=== PATIENT | female | born 1980 | race Caucasian/White ===

== ENCOUNTER → 2024-12-09 09:13 | Outpatient (REF) | payer OTHER, SELFPAY | LOC: WDC 09:13 | PROVIDERS: ATTENDING PHYSICIAN Family Medicine | DX: N64.4 Mastodynia (principal); N63.13 Unspecified lump in the right breast, lower outer quadrant; N63.22 Unspecified lump in the left breast, upper inner quadrant | CPT/HCPCS: 76642; 77062; 77066 ==

== ENCOUNTER 2025-08-04 11:53 | Emergency (ER) | payer OTHER, SELFPAY ==
[2025-08-04 11:59] VITALS: BP 116/78
[2025-08-04 12:29] LABS: Hematocrit 35.6 % (37.0-47.0); Hemoglobin 11.3 g/dL (12.0-16.0); Mean Corp Hgb Conc. 31.7 g/dL (33.0-37.0); Mean Corpuscular Volume 75.6 fL (81.0-99.0); Nucleated Red Blood Cells % 0 %; Platelet Count 263 10^3/uL (130-400); Red Cell Dist. Width 15.6 % (11.5-14.5)
[2025-08-04 12:44] LABS: ALT (SGPT) 13 U/L (0-35); AST (SGOT) 22 U/L (14-36); Albumin 5.2 g/dl (3.5-5.0); Alkaline Phosphatase 54 U/L (38-126); Blood Urea Nitrogen 13 mg/dl (7-17); Calcium 9.7 mg/dl (8.4-10.2); Carbon Dioxide 25 mmol/L (22-30); Chloride 104 mmol/L (98-107); Glucose 89 mg/dl (70-99); Potassium 5.1 mmol/L (3.5-5.1); Sodium 137 mmol/L (135-145); Total Protein 8.9 g/dl (6.3-8.2); eGFR > 60.00
[2025-08-04 12:49] LABS: INR 0.93; PT 12.6 Sec (11.4-14.6)
[2025-08-04 12:50] LABS: APTT 28.6 Sec (23.4-35.0)
[2025-08-04 12:52] LABS: Troponin I 0.017 ng/ml
--- NOTE | 2025-08-04 13:24 | ED.GENMED ---
History of Present Illness
<Rajesh Chand MD, Resident - Last Filed: 08/05/25 06:51>
General
Chief Complaint: Chest Pain
Time Seen by Provider: 08/04/25 13:24
History of Present Illness
History of Present Illness:
44 yo F PMH hypothyroidism, dyslipidemia (on rosuvastatin), pituitary adenoma (s/p removal > 20 years ago) p/w palpitations, sharp chest pain on left side when lying down on left side, and dyspnea for 4-5 days duration.
The pain is sharp/needle like character best noticed when she sleeps, it is nonradiating. no clear aggravating/alleviating factors.
She is perimenopausal and started hormone replacement therapy (progesterone pill, estrogen patch) 2 months ago and recently increased her estrogen dose 2 weeks prior.
she denies chest pain at the moment, mostly when lying down on left side, denies pleuritic chest pain, endorses some dyspnea, and endorses some congestion. endorses some lightheadedness/fatigue but denies focal weakness.
denies hemoptysis, denies recent travel, denies recent immobilization/surgeries, denies any known history of malignancy.
She presented to her PCP and then advised her to present to ED.
Social history: occasional Etoh but otherwise unremarkable.
Past History
<Rajesh Chand MD, Resident - Last Filed: 08/05/25 06:51>
Past History
ED Past Medical History: Hypothyroidism
ED Past Surgical History: Other (Thalmus adenoma and breast biopsy)
Social History
Tobacco: Non-smoker
Alcohol: None
Drug: None
Personal:
Living: with family
Review of Systems
<Rajesh Chand MD, Resident - Last Filed: 08/05/25 06:51>
Review of Systems
Constitutional: Reports no symptoms
EENT: Reports no symptoms
Respiratory: Reports trouble breathing
Cardiac: Reports chest pain and palpitations
ABD/GI: Reports no symptoms
: Reports no symptoms
Neurological: Reports other (lightheadedness)
Phy Exam
<Rajesh Chand MD, Resident - Last Filed: 08/05/25 06:51>
Physical Exam
Physical Exam:
VS: 116/78; HR 86; afebrile; SpO2
General: no acute distress
CV: regular rhythm, no murmurs on my exam
Pulm: CTAB
Abdomen: + bowel sounds, no tenderness to palpation
MSK: no lower extremity edema; no tenderness to palpation over calf bilaterally
Neuro: AOx3, no focal deficits
Skin: no rash visualized over left chest, on my exam
Scores
<Rajesh Chand MD, Resident - Last Filed: 08/05/25 06:51>
Heart Score for Chest Pain Patients
STEMI patient?: No
History: Slightly or Non-Suspicious
ECG: Normal
Age: >45 - <65 years
Risk Factors: 1 or 2 Risk Factors
Troponin: </= Normal Limit
Heart Score for Chest Pain Patients: 2
Heart Score Risk: 2.5% MACE over next 6 weeks
Course
<Rajesh Chand MD, Resident - Last Filed: 08/05/25 06:51>
Orders/Labs/Results
Orders:
Orders
08/04/25 11:54
Electrocardiogram (*1) Urgent
Reason for Study: Chest Pain
EKG- Treatment ONCE
08/04/25 12:13
Complete Blood Count/With Diff Urgent
Comprehensive Metabolic Panel Urgent
HCG, Serum Qualitative Screen Urgent
Magnesium Urgent
PTT Urgent
Prothrombin Time Urgent
TSH Reflex To Free T4 Urgent
Comment: ADD ON
Troponin I Urgent
08/04/25 14:14
Add On- LAB Urgent
Tests Added?: serum b-HCG ( test), Mg, TSH reflex to T4
08/04/25 14:18
CT Chest PE Study Urgent
Comment: add on serum bHCG pending
Reason For Exam: chest pain, dyspnea, palpitations, hormone use
08/04/25 14:48
COVID-19 Antigen Urgent
Source: Nasal Swab
Influenza A+B Rapid Molecular Urgent
DEJAN Source: Nasal Swab
Specimen Description:
Abnormal Lab Results
08/04/25
12:13
Hgb 11.3 L g/dL
(12.0-16.0)
Hct 35.6 L %
(37.0-47.0)
MCV 75.6 L fL
(81.0-99.0)
MCH 24.0 L pg
(27.0-31.0)
MCHC 31.7 L g/dL
(33.0-37.0)
RDW 15.6 H %
(11.5-14.5)
MPV 11.7 H fL
(7.4-10.4)
Total Protein 8.9 H g/dl
(6.3-8.2)
Albumin 5.2 H g/dl
(3.5-5.0)
08/04/25 12:13
08/04/25 12:13
Vital Signs
Initial and Last Documented VS:
Initial Vital Signs
Temp Pulse Resp BP Pulse Ox
98.7 F 86 18 116/78 100
08/04/25 11:59 08/04/25 11:59 08/04/25 11:59 08/04/25 11:59 08/04/25 11:59
Last Documented Vital Signs
Temp Pulse Resp BP Pulse Ox
98.7 F 85 19 112/75 98
08/04/25 11:59 08/04/25 19:48 08/04/25 19:48 08/04/25 19:48 08/04/25 19:48
<Franki Machado MD - Last Filed: 08/04/25 19:23>
Orders/Labs/Results
Orders:
Orders
08/04/25 11:54
Electrocardiogram (*1) Urgent
Reason for Study: Chest Pain
EKG- Treatment ONCE
08/04/25 12:13
Complete Blood Count/With Diff Urgent
Comprehensive Metabolic Panel Urgent
HCG, Serum Qualitative Screen Urgent
Magnesium Urgent
PTT Urgent
Prothrombin Time Urgent
TSH Reflex To Free T4 Urgent
Comment: ADD ON
Troponin I Urgent
08/04/25 14:14
Add On- LAB Urgent
Tests Added?: serum b-HCG ( test), Mg, TSH reflex to T4
08/04/25 14:18
CT Chest PE Study Urgent
Comment: add on serum bHCG pending
Reason For Exam: chest pain, dyspnea, palpitations, hormone use
08/04/25 14:48
COVID-19 Antigen Urgent
Source: Nasal Swab
Influenza A+B Rapid Molecular Urgent
DEJAN Source: Nasal Swab
Specimen Description:
Abnormal Lab Results
08/04/25
12:13
Hgb 11.3 L g/dL
(12.0-16.0)
Hct 35.6 L %
(37.0-47.0)
MCV 75.6 L fL
(81.0-99.0)
MCH 24.0 L pg
(27.0-31.0)
MCHC 31.7 L g/dL
(33.0-37.0)
RDW 15.6 H %
(11.5-14.5)
MPV 11.7 H fL
(7.4-10.4)
Total Protein 8.9 H g/dl
(6.3-8.2)
Albumin 5.2 H g/dl
(3.5-5.0)
08/04/25 12:13
08/04/25 12:13
Vital Signs
Initial and Last Documented VS:
Initial Vital Signs
Temp Pulse Resp BP Pulse Ox
98.7 F 86 18 116/78 100
08/04/25 11:59 08/04/25 11:59 08/04/25 11:59 08/04/25 11:59 08/04/25 11:59
Last Documented Vital Signs
Temp Pulse Resp BP Pulse Ox
98.7 F 85 19 112/75 98
08/04/25 11:59 08/04/25 19:48 08/04/25 19:48 08/04/25 19:48 08/04/25 19:48
<Rajesh Chand MD, Resident - Last Filed: 08/05/25 06:51>
MDM/Problems Addressed
Differential Diagnosis Includes:
PE, DVT, ACS, arrhythmia, breast mass/malignancy, presyncope, shingles, costochondritis, MSK strain
MDM/Problems Addressed:
44 yo F perimenopausal female who recently started hormone replacement therapy and increased estrogen patch dose 2 weeks ago
She is complaining of sharp chest pain that mainly occurs when lying on left side, not clearly related to exertion.
she reports not pleuritic chest pain, but dyspnea. She also endorses palpitations and some lightheadedness/fatigue.
Hormonal therapy risk factor for PE
physical exam does not show a clear leg swelling. no evidence of shingles on my exam
She is also not hypoxemic or tachypneic
The patient is at high risk of possible PE because of hormone replacement therapy. Thus, d-dimer will not impact management of obtaning CT Chest PE.
palpitations will be worked up with TSH reflex T4, Mg
possible breast pathology can likely be worked up outpatient
Troponin was 0.017
EKG was NSR
Cr within normal limits
will check test
Plan:
CBC/CMP
b-HCG
CT chest PE study
TSH reflex T4
Mg
Check covid/flu
Update:
Mg 2.2, within normal limits
TSH 4.31, within normal limits
Covid negative
flu negative
bHCG negative
CT Chest PE study: no evidence of pulmonary embolism.
Patient was discharged home.
<Rajesh Chand MD, Resident - Last Filed: 08/05/25 06:51>
*Pulse Oximetry
SaO2: 100
Patient hypoxic: no
*Critical Care Note
Total Time (30-74mins, 75-104mins- exclusive of procedures): Not Applicable
ED Attending Note
<Rajesh Chand MD, Resident - Last Filed: 08/05/25 06:51>
-
Portions of this chart may have been created with voice recognition software.� Occasional wrong word or��sound alike� substitutions may have occurred due to the inherent limitations of voice recognition software.
<Franki Machado MD - Last Filed: 08/04/25 19:23>
ED Attending Note
Patient seen and examined by attending physician: Yes
I performed a history and physical exam of patient and discussed management with resident, I reviewed resident's note and agree with documented findings and plan of care.: Yes
ED Attending Note:
I have seen and evaluated the patient with a [id number] encounter. I have spoken to the [resident] and involved in the medical history, the physical exam, medical decision making.
Evaluation and management service: agree unless noted differently below.
Results interpretation: agree unless noted differently below.
Patient is a 44-year-old woman on hormone replacement therapy presenting to the emergency department with chest pains. Patient states that she has been
Palpitations as well as left-sided chest pain when she lays on her left side. She states it is a sharp pain. She is also been having some shortness of breath. No nausea no vomiting. No hemoptysis. No leg swelling. She did recently increase her
estrogen dose. She called her primary care doctor given ongoing symptoms so advised her to come to the emergency department for further evaluation to rule out blood clot. Patient also notes that she been extremely fatigued and feels as if she has
a sinus infection. On my evaluation patient is resting comfortably. Her lungs are clear to auscultation. Heart is regular rate and rhythm. No reproducible chest wall tenderness. Differential is broad but consists of viral illness versus
electrolyte derangement versus atypical ACS. Considered PE as well given hormone replacement therapy. Will check blood work EKG and CT scan. Anticipate discharge.
Discharge Plan
Departure
Patient Disposition: Home (Routine Discharge)
Date of Disposition: 08/04/25
Time of Disposition: 19:21
Patient with high blood pressure during this ER visit?: No
Discharge Problem:
Chest pain, Palpitations
Instructions: Palpitations - ED (DC)
Prescriptions:
No Action
levothyroxine 50 MCG tablet
50 mcg PO DAILY
Referrals:
Marisol Pagan DO [Family Provider, Family Practice]
Activity Restrictions/Additional Instructions:
You were evaluated in the Emergency Department today for palpitations. Your evaluation has shown no signs of medical conditions requiring emergent intervention at this time, however we recommend that you follow up with your primary care physician or
your drafter topographical as soon as possible for further testing as an outpatient.
Please schedule an appointment for follow up with your primary care physician as soon as possible.
Return to the Emergency Department if you experience worsening or uncontrolled chest pain, shortness of breath, light headedness, feeling faint, nausea, vomiting, or any other concerning symptoms.
Thank you for choosing us for your care.
Interventions
Interventions:
*General Assessment Last Done: 08/04/25 12:01
*Neglect/Abuse Screening Last Done: 08/04/25 12:01
*ED COVID-19 Vaccine History Last Done: 08/04/25 12:01
*ED Influenza Vaccine History Last Done: 08/04/25 12:01
[facility] Fall Risk Assessment Tool Last Done: 08/04/25 15:06
*Risk Screen - Suicide (C-SSRS) Last Done: 08/04/25 12:01
*Nursing Disposition Last Done: 08/04/25 19:53
ED- Cardiac Assessment Last Done: 08/04/25 13:15
Discharge Date and Time
Discharge Date/Time: 08/04/25 19:54
Print Language: JAPANESE
[2025-08-04 14:44] VITALS: BP 132/83
[2025-08-04 15:00] VITALS: BP 125/80
[2025-08-04 15:00] LABS: Magnesium 2.2 mg/dl (1.6-2.3)
[2025-08-04 15:05] VITALS: BP 125/80
[2025-08-04 15:08] VITALS: BMI 19.8
[2025-08-04 15:16] LABS: HCG, Serum Qualitative Screen Negative
[2025-08-04 15:17] LABS: COVID-19 Antigen Negative (Negative)
[2025-08-04 19:48] VITALS: BP 112/75
== END 2025-08-04 19:54 | disposition home or self-care (01) ==
LOC: EMR 11:53
PROVIDERS: Emergency Medicine; EMERGENCY PHYSICIAN Student in an Organized Health Care Education/Training Program; FAMILY PHYSICIAN Family Medicine
DX: R07.89 Other chest pain (principal); R00.2 Palpitations; E78.00 Pure hypercholesterolemia, unspecified; E03.9 Hypothyroidism, unspecified; Z86.018 Personal history of other benign neoplasm; Z79.890 Hormone replacement therapy
CPT/HCPCS: 99284; 71275; 80053; 83735; 84443; 84484; 84703; 85025; 85610; 85730; 87502; 87811; 93005; Q9967